=== PATIENT | female | born 1980 | race Caucasian/White ===

== ENCOUNTER 2016-10-08 08:40 | Emergency (ER) | payer OTHER ==
[~2016-10-08] VITALS: Ht 165.1 cm; Wt 85.9 kg
[~2016-10-08 08:40] MED LIST: AFRIN,GENASAL D15 ML BOTH NARES; COLACE100 MG PO; ENDOCET 5-3251 EACH PO; HYDROCODON-ACE1 EAC7 PO; MOTRIN600 MG PO; MOTRIN800 MG PO; NAPROSYN500 MG PO; NEO-SYNEPHRINE15 M4 BOTH NARES; NOHOMEMEDS; ROBITUSSIN AC,T10 ML PO; TESSALON PERLE100 MG PO; ULTRAM50 MG PO; ZITHROMAX Z-PA250 MG PO; ZYRTEC10 M2 PO
[2016-10-08 08:43] VITALS: BP 115/81
[2016-10-08 09:20] LABS: HEMATOCRIT 37.4 % (36.0-46.0); MCH 30.6 PG (29.0-34.0); MCV 90.1 FL (83-99); MEAN PLAT.VOLUME 10.8 uM^3 (9.5-12.4); PLATELET COUNT 178 K/uL (156-360); RBC DIS.WIDTH-CV 13.1 % (11.8-14.6); RBC DIS.WIDTH-SD 42.2 % (39-53); RED BLOOD COUNT 4.15 M/uL (3.80-5.20); WHITE BLOOD COUNT 5.8 K/uL (4.1-10.2)
[2016-10-08 09:40] LABS: TROP-I INTERPRETATION NEGATIVE; TROPONIN-I < 0.01 ng/mL (0.0-0.30)
[2016-10-08 09:41] LABS: QUANTITATIVE HCG < 4.0 MIU/ML
[2016-10-08 10:09] LABS: CHLORIDE 106 mEq/L (99-109); POTASSIUM 4.3 mEq/L (3.7-5.4); SODIUM 138 mEq/L (136-147)
[2016-10-08 10:12] LABS: GLUCOSE 92 mg/dL (70-99)
[2016-10-08 10:13] LABS: ANION GAP 8 MEQ/L (2-14)
[2016-10-08 10:14] LABS: TOTAL BILIRUBIN 0.4 mg/dL (0.0-1.0)
[2016-10-08 10:15] LABS: ALKALINE PHOSPHATASE 58 IU/L (3-129); GFR ESTIMATE (CALCULATED) > 59 mL/min/
[2016-10-08 10:17] LABS: UREA NITROGEN (BUN) 13 mg/dL (9-23)
[2016-10-08 10:19] LABS: LIPASE 98 U/L (1.0-51.0)
[2016-10-08 11:11] LABS: D-DIMER ELISA 0.19 mg/L FEU (< 0.57)
== END 2016-10-08 10:15 | disposition left against medical advice (07) ==
LOC: EME 08:40
PROVIDERS: Emergency Medicine
DX: R07.9 Chest pain, unspecified (principal); M79.602 Pain in left arm; Z53.21 Procedure and treatment not carried out due to patient leaving prior to being seen by health care provider
CPT/HCPCS: 71020; 80053; 83690; 84484; 84702; 85027; 85379; 93005

== ENCOUNTER 2017-05-04 07:03 | Emergency (ER) | payer OTHER ==
[~2017-05-04] VITALS: Ht 165.1 cm; Wt 86.5 kg
[2017-05-04] MEDS ORDERED: POLYTRIM EYE DR10 ML RIGHT EYE (08:15)
[2017-05-04 08:34] VITALS: BP 120/78
== END 2017-05-04 08:35 | disposition home or self-care (01) ==
LOC: EME 07:03
PROC: 08C8XZZ Extirpation of Matter from Right Cornea, External Approach (ICD-10-PCS; principal; 2017-05-04)
DX: T15.01XA Foreign body in cornea, right eye, initial encounter (principal); X58.XXXA Exposure to other specified factors, initial encounter; Y99.0 Civilian activity done for income or pay; Z87.891 Personal history of nicotine dependence
CPT/HCPCS: 99281; 99283

== ENCOUNTER 2017-05-31 22:35 | Emergency (ER) | payer OTHER ==
[~2017-05-31] VITALS: Ht 165.1 cm; Wt 87.4 kg
[~2017-05-31 22:35] MED LIST changes: +POLYTRIM EYE DR10 ML RIGHT EYE
[2017-05-31 22:36] VITALS: BP 132/87
[2017-05-31] MEDS ORDERED: AUGMENTIN875 MG PO (22:40)
== END 2017-06-01 00:37 | disposition home or self-care (01) ==
LOC: EME 22:35
DX: K04.7 Periapical abscess without sinus (principal)
CPT/HCPCS: 99281; 99282